=== PATIENT | male | born 1930 | race Caucasian/White ===

== ENCOUNTER 2017-10-31 09:25 | Emergency (ER) | payer OTHER ==
[~2017-10-31] VITALS: Ht 175.3 cm; Wt 82.0 kg
[~2017-10-31 09:25] MED LIST: ASPI-516 CHEW; ATOR80TA45 PO; BUME0.5T PO; CARB200T PO; CARV12.52 PO; CHOL100025 CHEW; CHRO1CAP2 PO; HYDR-3533 PO; LIPI80TA PO; LOSA25TA PO; OMEP20CA2 PO; TAMS0.4C4 PO; TRAM50TA PO; maxair
[2017-10-31 09:27] VITALS: BP 177/82; PULSE 69; RESP 16; TEMP 98.6; O2SAT 96
[2017-10-31] MEDS ORDERED: FLUT50SP EACH NARE (09:43)
[2017-10-31] MEDS ORDERED: LOSA100T PO (09:43)
--- NOTE | 2017-10-31 09:54 | PD ---
HPI Chief Complaint: Skin Problem Time Seen by Provider: 09:38 Travel History International Travel<30 days: No Contact w/Intl Traveler<30days: No Traveled to known affect area: No History of Present Illness HPI 86-year-old male presents emergency department for evaluation of rash on the face that has been present for 2-3 weeks. Says that the area is pruritic but denies significant pain. Says the area is tender to palpation and he is concerned because he is developing blurred vision in both eyes. Says he does also developing eye discharge in the morning. He denies significant pain of movement of the eyes. Denies contact lens use although he does use corrective lenses. He decided to come in today for evaluation because the area is becoming more painful. In addition, patient has had a rash on the buttocks for several months. He has not used any medication [id number] or otherwise to relieve his symptoms. He denies fevers or chills. Says the area is very irritated and more noticeable with sitting. He denies fevers or chills. He has no other complaints today. Says he is up-to-date on his immunizations and received the shingles vaccine several months ago. Note that he takes carbamazepine for trigeminal neuralgia on the left. PFSH Past Medical History Hx Anticoagulant Therapy: Yes (BABY ASA DAILY) Arthritis: Yes Asthma: No Autoimmune Disease: No Blood Disorders: No Anxiety: No Depression: No Heart Rhythm Problems: No Cancer: No Cardiac Catheterization: Yes Cardiovascular Problems: Yes (HTN) High Cholesterol: Yes Chemotherapy: No Chest Pain: No Congestive Heart Failure: No COPD: Yes Cerebrovascular Accident: No Coronary Artery Disease: Yes Diabetes: Yes Diminished Hearing: No Endocrine: No Gastrointestinal Disorders: Yes GERD: No Glaucoma: No Genitourinary: Yes Hepatitis: Yes (+ HEP B SINCE 1953, POSSIBLY HEP A) Hiatal Hernia: No Hypertension: Yes Immune Disorder: No Kidney Stones: No Musculoskeletal: Yes Neurologic: No Psychiatric: No Reproductive: No Respiratory: Yes (PNEUMONIA) Migraines: No Myocardial Infarction: No Radiation Therapy: No Renal Failure: No Seizures: No Sleep Apnea: No Thyroid Disease: No Ulcer: Yes Past Surgical History Abdominal Surgery: Yes (APPENDECTOMY 1954) AICD: No Appendectomy: Yes (1954) Cardiac Surgery: No Coronary Artery Bypass Graft: Yes (5-way) Ear Surgery: No Endocrine Surgery: No Genitourinary Surgery: No Gynecologic Surgery: No Oral Surgery: No Pacemaker: No Thoracic Surgery: Yes (LUNG NODULE REMOVED 1992) Other Surgery: Yes (LUNG NODULE REMOVED) Social History Alcohol Use: No Tobacco Use: No Substance Use: No Allergies-Medications (Allergen,Severity, Reaction): Coded Allergies: No Known Allergies (Verified Adverse Reaction, Unknown, 10/31/17) Reported Meds & Prescriptions Reported Meds & Active Scripts Active Acyclovir 800 Mg Tab 800 Mg PO 5 TIMES A DAY 7 Days Nystatin-Triamcinolone 100,000-0.1 Unit/Gm Cream 1 Applic TOPICAL BID 7 Days Apply to buttocks 1-2 times daily. Reported Fluticasone Nasal [place] 50 Mcg/Act Naspr 50 Mcg EACH NARE BID 50 mcg/spray Losartan (Losartan Potassium) 100 Mg Tab 100 Mg PO DAILY Carvedilol 12.5 Mg Tab 12.5 Mg PO BID Omeprazole 20 Mg Cap 1 Cap PO DAILY Vitamin D3 (Cholecalciferol) 1,000 Unit Chew 1,000 Units CHEW DAILY Lipitor (Atorvastatin Calcium) 80 Mg Tab 80 Mg PO HS Cinnamon Plus Chromium (Chromium-Cinnamon) 200-1,000 Mcg-Mg Cap 1 Tab PO DAILY Carbamazepine 200 Mg Tab 400 Mg PO BID Bumetanide 0.5 Mg Tab 0.5 Mg PO DAILY Aspirin 81 Mg Chew 81 Mg CHEW DAILY Review of Systems Except as stated in HPI: all other systems reviewed are Neg Physical Exam Narrative GENERAL: Well-nourished, well-developed patient, in NAD SKIN: Focused skin assessment warm/dry. No rashes or lesions. Left faith and left lateral area of the eye-2 clusters of semi-healed blisters different sizes, mildly tender to palpation. hutchinsons' sign negative Buttocks- rough, scaling patches of external gluts without maceration. mildly TTP. no exudate or bleeding. Patient has some proptosis of his eyelid which apparently is normal for him. HEAD: Normocephalic. Atraumatic. EYES: No scleral icterus. No injection or drainage. PERRLA, EOMI. 4 oclock position with 4-5 lines extending outward (dendritic lesions?) corneal abrasion vs dendrites about the 4oclock position THROAT: No pharyngeal injection, exudates, or tonsillar hypertrophy. Airway is patent. NECK: Supple, trachea midline. No JVD or lymphadenopathy. No meningismus. CARDIOVASCULAR: Regular rate and rhythm without murmurs, gallops, or rubs. RESPIRATORY: Breath sounds equal bilaterally. No accessory muscle use. No wheezes, rales, or rhonchi MUSCULOSKELETAL: No cyanosis, or edema. BACK: Nontender without obvious deformity. No CVA tenderness. Data Data Last Documented VS Vital Signs Date Time Temp Pulse Resp B/P (MAP) Pulse Ox O2 Delivery O2 Flow Rate FiO2 10/31/17 09:27 98.6 69 16 177/82 (113) 96 Orders Orders Proparacaine 0.5% Opth Soln (Alcaine 0.5 (10/31/17 10:00) Ed Discharge Order (10/31/17 10:29) [facility] Medical Decision Making Medical Screen Exam Complete: Yes Emergency Medical Condition: Yes Differential Diagnosis Shingles, actinic keratosis, seborrheic keratosis, candidiasis, callus, intertrigo Narrative Course Patient says that he has an eye doctor and is able to follow-up with him today. His limiting factor would be transportation however, says that his friend would take him wherever he needs to go. I strongly advised that he follow-up with an eye doctor today. Advised that he go directly to his eye doctor after leaving the emergency department. In addition, it appears that the rash on his buttocks is somewhat of a callus. Says that the area is tender. I do not suspect a significant infection but rather irritation. There is no maceration. I believe that his rash on his buttocks is amenable to triamcinolone and nystatin cream. He really should follow-up with his primary care physician regarding this rash as it has been present for several months. He states understanding will comply. 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 You may have shingles that is affecting your eye. Start all medications today. If you are unable to see your eye doctor, go to Scripts Acyclovir (Acyclovir) 800 Mg Tab 800 MG PO 5 TIMES A DAY for Mgmt Viral Infection for 7 Days, TAB 0 Refills Prov: Trevor Amos MD 10/31/17 Nystatin-Triamcinolone (Nystatin-Triamcinolone) 100,000-0.1 Unit/Gm Cream 1 APPLIC TOPICAL BID for Infection for 7 Days, #30 GM 0 Refills Apply to buttocks 1-2 times daily. Prov: Trevor Amos MD 10/31/17 Disposition: 01 DISCHARGE HOME Condition: Stable Daniela Montgomery Oct 31, 2017 09:54
[2017-10-31] MEDS ORDERED: ACYC800T PO (09:56)
[2017-10-31] MEDS ORDERED: NYSTCRE29 TOPICAL (09:56)
[2017-10-31] MEDS ORDERED: PROPARACAINE HCL 0.5% OPHT SOLN 15 ML BTL EACH EYE ONE (10:00)
== END 2017-10-31 10:56 | disposition home or self-care (01) ==
LOC: PHED 09:25
DX: R21 Rash and other nonspecific skin eruption (principal); B02.33 Zoster keratitis; H53.8 Other visual disturbances; M19.90 Unspecified osteoarthritis, unspecified site; I10 Essential (primary) hypertension; E78.00 Pure hypercholesterolemia, unspecified; J44.9 Chronic obstructive pulmonary disease, unspecified; I25.10 Atherosclerotic heart disease of native coronary artery without angina pectoris; E11.9 Type 2 diabetes mellitus without complications; Z95.1 Presence of aortocoronary bypass graft; Z79.82 Long term (current) use of aspirin
CPT/HCPCS: 99283